=== PATIENT | female | born 1980 | race Caucasian/White ===

== ENCOUNTER 2016-10-19 18:44 | Emergency (ER) | payer OTHER | END 2016-10-19 19:22 | disposition home or self-care (01) | LOC: ER 18:44 | DX: J03.90 Acute tonsillitis, unspecified (principal); J02.9 Acute pharyngitis, unspecified ==

== ENCOUNTER 2017-01-10 21:11 | Emergency (ER) | payer OTHER | END 2017-01-10 22:10 | disposition home or self-care (01) | LOC: ER 21:11 | DX: L02.214 Cutaneous abscess of groin (principal) ==